=== PATIENT | female | born 1940 | race Caucasian/White ===

== ENCOUNTER → 2017-05-03 | Outpatient (CLI) | payer MEDICARE ==
--- NOTE | 2017-05-10 12:05 | CONS ---
DATE OF CONSULTATION: 05/03/2017 A 77-year-old lady had been evaluated in sleep center for possible obstructive sleep apnea hypopnea syndrome. HISTORY OF PRESENT ILLNESS/SLEEP WAKE EVALUATION: SLEEP SCHEDULE: The patient's usual sleep scheduled from 9:10 p.m. until 6 to 7 a.m. Average sleep is for about 7 hours. No TV in bedroom. FALLING ASLEEP: DURING SLEEP: She usually sleeps on the back position. She snores and has episodes of stopped breathing during the sleep. She wakes up from sleep 3 times with nocturia and dry mouth and positive history of gasping for air during the sleep. DURING THE DAY/WAKE STATE: She occasionally takes naps in the afternoon. [place] sleepiness scale is 8. PAST MEDICAL HISTORY: Positive for hyperlipidemia, left breast CA, seasonal allergy. PAST SURGICAL HISTORY: Lumpectomy from left breast in 2012, surgical treatment of broken leg in 2014. MEDICATIONS: Arimidex, Crestor, baby aspirin. REVIEW OF SYSTEMS: Awakenings from sleep, sometimes tiredness and sleepiness during the day. No fevers. No double vision. No recent chest pain. No shortness of breath. No abdominal pain. No bleeding episodes. No blood in urine. No seizure episodes. SOCIAL HISTORY: Negative for smoking or using alcohol. FAMILY HISTORY: Hypertension, hyperlipidemia, stroke, snoring, diabetes. DURING PHYSICAL EXAM: A 77-year-old lady without distress. VITAL SIGNS: BP 144/88, HR 85, RR 16, height 65.5, weight 159.8, BMI 26.2. Neck 14 inches in circumference. Temperature 98.0. HEENT: PERRLA, EOMI. Evaluation of oropharynx moderately low position of soft palate, extremely short distance between soft palate and back pharyngeal wall. Small nasal passages. NECK: Supple. No JVD. Thyroid is not palpable. LUNGS: Clear to percussion and auscultation. Good air exchange. No wheezing or rhonchi. HEART: S1, S2 regular. No murmurs, gallops or rubs. ABDOMEN: Soft and nontender. Bowel sounds are present. No organomegaly appreciated. EXTREMITIES: No clubbing or cyanosis. ICE SKATING TEACHER: Awake, alert and oriented x3. Cranial nerves 2 to 7 intact. There is no fasciculation or atrophy noted. No focal deficits observed. IMPRESSION: 1. Snoring, witnessed episodes of stopped breathing during the sleep. Awakenings with dry mouth and nocturia. Small oropharyngeal air space. Obstructive sleep apnea hypopnea syndrome. 2. History of left breast cancer, status post lumpectomy. 3. Hyperlipidemia. 4. History of broken leg. PLAN: 1. Polysomnography for evaluation of patient's breathing during sleep. 2. CPAP/BiPAP titration if sleep study confirms obstructive sleep apnea- hypopnea syndrome. 3. Preferable position during sleep on the side. 4. No driving if patient feels any sleepiness. Patient is aware of civil and criminal liability for unsafe driving. 5. I will see patient for follow-up visit to explain results of the testing and following plan. Thank you very much for referring this patient for consultation. Sincerely, Satish Read MD, PhD, FAASM Diplomat of [place] [employer] Sleep Medicine Board by [place] [employer] [place] [employer] Fly Winder of [facility] [place] [facility]
== END | disposition home or self-care (01) ==
LOC: SLEEP 14:28
PROVIDERS: ATTEND Internal Medicine
DX: G47.33 Obstructive sleep apnea (adult) (pediatric) (principal); E78.5 Hyperlipidemia, unspecified; Z85.3 Personal history of malignant neoplasm of breast; Z98.890 Other specified postprocedural states; Z79.811 Long term (current) use of aromatase inhibitors; Z79.82 Long term (current) use of aspirin
CPT/HCPCS: 99211

== ENCOUNTER → 2017-07-12 | Outpatient (CLI) | payer MEDICARE ==
--- NOTE | 2017-07-12 22:20 | PN ---
PROGRESS NOTE DATE OF SERVICE: 07/12/2017 77-year-old lady has been followed in the Sleep Center for treatment of obstructive sleep apnea-hypopnea syndrome. Recently the patient had diagnostic polysomnogram and CPAP titration and I discussed results of the sleep study with the patient in detail. She has severe sleep apnea with apnea-hypopnea index 42.9. She was started on treatment with CPAP and she brought her CPAP unit with her. She is able to use equipment without significant problem. I checked CPAP unit. CPAP pressure in automatic regimen, range between 5 and 10. The patient demonstrated 100% compliance with treatment. She is using equipment every night more than 4 hours every 7.2 hours. Most of the time, pressure is 9.8 cm of water. Leak is in normal range, 11 L/minute. Apnea-hypopnea index is only 1.8 for the last month reading which is in normal range. [place] Sleepiness Scale today is 5. IMPRESSION: 1. Severe obstructive sleep apnea-hypopnea syndrome. Apnea-hypopnea index 42.9 with oxygen desaturation of 77.4% on full control with CPAP. Patient demonstrated 100% compliance with treatment benefiting from treatment. 2. Hyperlipidemia. MEDICATIONS: 1. Aspirin. 2. Arimidex. History of left breast CA treated with lumpectomy treated with radiation. PLAN: 1. The patient will continue to use her CPAP equipment with the same pressure every night for the whole night. 2. Watching weight. 3. Sleep hygiene with time in bed for at least 8 hours. 4. No driving if feeling sleepiness. 5. Followup visit in 10 months. Thank you very much for allowing me to participate in management of your patient. Sincerely, Satish Read MD, PhD, FAASM Diplomat of [place] [employer]. Sleep Medicine Board by [place] [employer] [employer] Clinical Data Associate of [facility] [place] MMODL / IJN: [id number] /
== END ==
LOC: SLEEP 13:57
PROVIDERS: ATTEND Internal Medicine
DX: G47.33 Obstructive sleep apnea (adult) (pediatric) (principal); E78.5 Hyperlipidemia, unspecified; Z79.899 Other long term (current) drug therapy; Z79.82 Long term (current) use of aspirin

== ENCOUNTER → 2018-07-11 | Outpatient (CLI) | payer MEDICARE ==
--- NOTE | 2018-07-11 12:57 | SFUN ---
SLEEP CENTER FOLLOW UP NOTE DATE OF SERVICE: 07/11/2018 A 78-year-old lady who has been followed in sleep center for treatment of severe obstructive sleep apnea-hypopnea syndrome. Patient continued to use her CPAP equipment every night for the whole year. She had one episode when she feels some tightness in the chest. She believes that at that time she has some allergy reaction. I checked her CPAP unit. It is on the automatic regimen with a pressure range of 5 to 10. Usage is 100% of the time more than 4 hours, 28 out of 30 nights for more than 4 hours. Average usage is 6.4 hours. Leak only 2 L/minute. Reading of the pressure from the machine is 9.9 cm of water. Apnea-hypopnea index of 4.7 for the last month, 4.0 for the last 6 months. At that period of time, pressure is in the range of 9.7 cm of water slightly less. Patient increased her weight of around 6 pounds since titration. No significant excessive daytime sleepiness. [place] Sleepiness Scale is 3. MEDICATIONS: Aspirin, Arimidex. PHYSICAL EXAMINATION: During physical exam, patient in no distress. VITAL SIGNS: BP 151/87, HR 81, RR 15, height 66 inches, weight 165.2 pounds, body mass index 26.6, temperature 98.2, oxygen saturation at room air 98%. HEENT: PERRLA, EOMI. Oropharynx low position of soft palate. NECK: Supple, no JVD. Thyroid is not palpable. LUNGS: Clear to percussion and to auscultation. Good air exchange. No wheezing or rhonchi. HEART: S1, S2 regular. No murmurs, gallops, or rubs. ABDOMEN: Soft and nontender. Bowel sounds are present. No organomegaly appreciated. EXTREMITIES: No clubbing or cyanosis. PRINCIPAL CONSULTANT: Awake, alert, and oriented X3. Cranial nerves 2 to 7 intact. There is no fasciculation or atrophy. noted. No focal deficits observed. IMPRESSIONS: 1. Severe obstructive sleep apnea-hypopnea syndrome on control with CPAP. The patient demonstrated 100% compliance with treatment, benefitting from treatment. 2. Hyperlipidemia. 3. History of left breast cancer, treated by lumpectomy and radiation therapy. PLAN: 1. Patient will continue to use her equipment every night for the whole night. 2. Sleep hygiene with regular time in bed for at least 8 hours. 3. Prescription for all necessary CPAP supplies including mask, tube, filters. 4. No driving if feeling any sleepiness. Thank you very much for allowing me to participate in management of your patient. Sincerely, Satish Read MD, PhD, FAASM Diplomat of [place] [employer] [place] [employer] Edger Machine Operator of [facility] [place] MMODL / IJN: [id number] /
== END | disposition home or self-care (01) ==
LOC: SLEEP 11:12
PROVIDERS: ATTEND Internal Medicine
DX: G47.33 Obstructive sleep apnea (adult) (pediatric) (principal); Z99.89 Dependence on other enabling machines and devices; Z85.3 Personal history of malignant neoplasm of breast; Z92.3 Personal history of irradiation; Z90.12 Acquired absence of left breast and nipple; Z79.811 Long term (current) use of aromatase inhibitors; Z79.82 Long term (current) use of aspirin; Z79.899 Other long term (current) drug therapy

== ENCOUNTER → 2019-07-10 | Outpatient (CLI) | payer MEDICARE ==
--- NOTE | 2019-07-10 17:33 | PN ---
PROGRESS NOTE DATE OF SERVICE: 07/10/2019 This 79-year-old lady has been followed in Sleep Center for treatment of obstructive sleep apnea-hypopnea syndrome. The patient successfully continues to use her CPAP equipment every night for the whole night. No significant problems with her mask. I checked her CPAP unit. Range of pressure is from 5 to 10, average pressure 9.8 cm of water. Usage is 30/30 nights for more than 4 hours, with average usage 6.8 hours per night. Apnea-hypopnea index is only 2.6, which is normal. Leak is only 7 L/minute, which is normal. [place] Sleepiness Scale today is 3, which is perfect. MEDICATIONS: 1. Arimidex was stopped. 2. Aspirin. 3. Lipitor. PHYSICAL EXAMINATION: GENERAL: A pleasant patient in no distress. VITAL SIGNS: BP 163/91, HR 80, RR 16, height 66 inches, weight 162 pounds. Body mass index 26.9. Temperature 97.7, oxygen saturation at room air 99%. HEENT: PERRLA, EOMI. Evaluation of oropharynx showed tongue protrudes midline. Low position of soft palate. Mallampati III. NECK: Supple. No JVD. Thyroid is not palpable. LUNGS: Clear to percussion and to auscultation. Good air exchange. No wheezing or rhonchi. HEART: S1, S2 regular. No murmurs, gallops or rubs. ABDOMEN: Soft and nontender. Bowel sounds are present. No organomegaly. EXTREMITIES: No clubbing or cyanosis. ASSISTANT STORE DIRECTOR: Awake, alert, and oriented X3. Cranial nerves 2 to 7 intact. There is no fasciculation or atrophy. noted. No focal deficits observed. IMPRESSION: 1. Severe obstructive sleep apnea-hypopnea syndrome, under control with CPAP. The patient demonstrated great compliance with treatment, benefitting from treatment. 2. Hyperlipidemia. 3. History of left breast carcinoma, treated by lumpectomy, radiation therapy. PLAN: 1. Patient will continue to use CPAP equipment every night for the whole night. 2. I will maintain all necessary prescriptions for CPAP supplies, including small AirFit P10 nasal pillow mask, tube, filters. 3. Precautions related to driving. No driving if feeling any sleepiness. Thank you very much for allowing me to participate in the management of your patient. Sincerely, Satish Read MD, PhD, FAASM Diplomat of [place] [employer] [place] [employer] Medicine Multi Needle Machine Operator of [facility] [place] MMODL / LETAN: [id number] /
== END | disposition home or self-care (01) ==
LOC: SLEEP 15:17
PROVIDERS: ATTEND Internal Medicine
DX: G47.33 Obstructive sleep apnea (adult) (pediatric) (principal); E78.5 Hyperlipidemia, unspecified; Z85.3 Personal history of malignant neoplasm of breast; Z92.3 Personal history of irradiation; Z98.890 Other specified postprocedural states; Z99.89 Dependence on other enabling machines and devices; Z79.82 Long term (current) use of aspirin; Z79.899 Other long term (current) drug therapy

== ENCOUNTER 2019-08-10 12:24 | Emergency (ER) | payer MEDICARE ==
[2019-08-10 12:28] VITALS: RESP 16
[2019-08-10 12:53] VITALS: TEMP 97.6
--- NOTE | 2019-08-10 12:55 | ED ---
Neuro HPI - General Chief Complaint: Neuro Symptoms/Deficit Stated Complaint: rt sided arm/face numbness Time Seen by Provider: 08/10/19 12:30 Source: patient Mode of arrival: ambulatory Limitations: no limitations - History of Present Illness Is the patient presenting with stroke symptoms?: Yes Last Known Well Date: 08/09/19 Last Known Well Time: 18:00 Initial Comments: The patient is a 79-year-old female with past history of hyperlipidemia who presents to the emergency department with complaint of right arm and right thigh tingling. She reports that the symptoms started sometime last night. She does have a history of degenerative disc disease and herniated disks. She was that this may be causing her symptoms. She denies any provocation or palliation of the symptoms with movement. She did not take any medications at home for her symptoms. She denies any upper or lower extremity weakness. There is no report of any slurred speech, confusion or ataxia. Denies any headaches or visual changes. Denies chest pain or shortness of breath. No ripping or tearing se nsation to her back. Denies nausea, vomiting. No history of cardiac disease. There are no other alleviating, precipitating or modifying factors - Related Data Home Medications: Home Medications Medication Instructions Recorded Confirmed Acetaminophen [Tylenol Extra 1,000 mg PO BID PRN 08/10/19 08/10/19 Strength] Calcium Carbonate [Calcium] 600 mg PO DAILY 08/10/19 08/10/19 L.acidoph,Paracasei, B.lactis 1 cap PO DAILY 08/10/19 08/10/19 [Probiotic] Multivitamins, Thera [Multivitamin 1 tab PO DAILY 08/10/19 08/10/19 (formulary)] Allergies/Adverse Reactions: Allergies Allergy/AdvReac Type Severity Reaction Status Date / Time atorvastatin [From Lipitor] Allergy Rash/Hives Verified 08/10/19 12:54 rosuvastatin [From Crestor] AdvReac Leg Cramps Verified 08/10/19 12:54 Review of Systems ROS Statement: Those systems with pertinent positive or pertinent negative responses have been documented in the HPI. ROS Other: All systems not noted in ROS Statement are negative. General Exam Limitations: no limitations General appearance: alert, in no apparent distress Head exam: Present: atraumatic, normocephalic, normal inspection Eye exam: Present: normal appearance, PERRL, EOMI. Absent: scleral icterus, conjunctival injection, periorbital swelling ENT exam: Present: normal exam, mucous membranes moist Neck exam: Present: normal inspection. Absent: tenderness, meningismus, lymphadenopathy Respiratory exam: Present: normal lung sounds bilaterally. Absent: respiratory distress, wheezes, rales, rhonchi, stridor Cardiovascular Exam: Present: regular rate, normal rhythm, normal heart sounds. Absent: systolic murmur, diastolic murmur, rubs, gallop, clicks GI/Abdominal exam: Present: soft, normal bowel sounds. Absent: distended, tenderness, guarding, rebound, rigid Extremities exam: Present: normal inspection, full ROM, normal capillary refill. Absent: tenderness, pedal edema, joint swelling, calf tenderness Back exam: Present: normal inspection Neurological exam: Present: alert, oriented X3, CN II-XII intact, normal gait, reflexes normal, other (sensation intact in all dermotomes. ) Psychiatric exam: Present: normal affect, normal mood Skin exam: Present: warm, dry, intact, normal color. Absent: rash Stroke MDM - Lab Data Result diagrams: 08/10/19 12:45 08/10/19 12:45 Lab Results 08/10/19 08/10/19 08/10/19 Range/Units 12:45 12:45 12:45 WBC 4.7 (3.8-10.6) k/uL RBC 4.71 (3.80-5.40) m/uL Hgb 13.1 (11.4-16.0) gm/dL Hct 41.2 (34.0-46.0) % MCV 87.4 (80.0-100.0) fL MCH 27.7 (25.0-35.0) pg MCHC 31.7 (31.0-37.0) g/dL RDW 14.6 (11.5-15.5) % Plt Count 444 (150-450) k/uL Neutrophils % 55 % Lymphocytes % 33 % Monocytes % 6 % Eosinophils % 1 % Basophils % 3 % Neutrophils # 2.6 (1.3-7.7) k/uL Lymphocytes # 1.6 (1.0-4.8) k/uL Monocytes # 0.3 (0-1.0) k/uL Eosinophils # 0.0 (0-0.7) k/uL Basophils # 0.1 (0-0.2) k/uL PT 10.4 (9.0-12.0) sec INR 1.0 (<1.2) APTT 24.6 (22.0-30.0) sec Sodium 135 L (137-145) mmol/L Potassium 4.5 (3.5-5.1) mmol/L Chloride 95 L (98-107) mmol/L Carbon Dioxide 28 (22-30) mmol/L Anion Gap 12 mmol/L BUN 10 (7-17) mg/dL Creatinine 1.00 (0.52-1.04) mg/dL Est GFR (CKD-EPI)AfAm 63 (>60 ml/min/1.73 sqM) Est GFR (CKD-EPI)NonAf 54 (>60 ml/min/1.73 sqM) Glucose 118 H (74-99) mg/dL Calcium 10.2 (8.4-10.2) mg/dL Total Bilirubin 0.9 (0.2-1.3) mg/dL AST 28 (14-36) U/L ALT 31 (9-52) U/L Alkaline Phosphatase 29 L (38-126) U/L Troponin I (0.000-0.034) ng/mL Total Protein 8.2 (6.3-8.2) g/dL Albumin 5.0 (3.5-5.0) g/dL 08/10/19 Range/Units 12:45 WBC (3.8-10.6) k/uL RBC (3.80-5.40) m/uL Hgb (11.4-16.0) gm/dL Hct (34.0-46.0) % MCV (80.0-100.0) fL MCH (25.0-35.0) pg MCHC (31.0-37.0) g/dL RDW (11.5-15.5) % Plt Count (150-450) k/uL Neutrophils % % Lymphocytes % % Monocytes % % Eosinophils % % Basophils % % Neutrophils # (1.3-7.7) k/uL Lymphocytes # (1.0-4.8) k/uL Monocytes # (0-1.0) k/uL Eosinophils # (0-0.7) k/uL Basophils # (0-0.2) k/uL PT (9.0-12.0) sec INR (<1.2) APTT (22.0-30.0) sec Sodium (137-145) mmol/L Potassium (3.5-5.1) mmol/L Chloride (98-107) mmol/L Carbon Dioxide (22-30) mmol/L Anion Gap mmol/L BUN (7-17) mg/dL Creatinine (0.52-1.04) mg/dL Est GFR (CKD-EPI)AfAm (>60 ml/min/1.73 sqM) Est GFR (CKD-EPI)NonAf (>60 ml/min/1.73 sqM) Glucose (74-99) mg/dL Calcium (8.4-10.2) mg/dL Total Bilirubin (0.2-1.3) mg/dL AST (14-36) U/L ALT (9-52) U/L Alkaline Phosphatase (38-126) U/L Troponin I <0.012 (0.000-0.034) ng/mL Total Protein (6.3-8.2) g/dL Albumin (3.5-5.0) g/dL - Medical Decision Making Upon arrival the patient is placed into room 10. A thorough history and physical exam was performed. The patient does report subjective sensation changes in her right upper extremity at this time. No appreciable weakness. The patient does have intact sensation upon testing. NIH stroke scaling is performed and demonstrates a score of 0. I did recommend laboratory studies, and EKG and a CT of the patient's brain and cervical spine as she does report a history of cervical neck pain. Laboratory studies demonstrate a sodium of 135, chloride 95. Glucose 118. Troponin is negative. The patient is sent over for chest x-ray which demonstrates no active molding technician process. CT of the b rain demonstrates mild atrophy appropriate for age. No acute intracranial abnormality. Minor facet arthropathy with degenerative disc space narrowing at C5-C6, C6 to 7 with spur formation. I did discuss these results with the patient. I did perform a neurologic exam which demonstrates no new deficits. Patient reports that the numbness in her right upper extremity has improved somewhat. I did discuss diagnosis, differential and treatment options. I did offer admission to the hospital for MRI and neurologic consultation however the patient refused. I do believe that the patient is suffering from paresthesias in her right upper extremity however did recommend a full workup to include ca rotid Dopplers and an echo. The patient should call her primary care physician immediately and the morning to have the scheduled. The patient has any new or worsening symptoms she needs to return to the emergency department. Return parameters were discussed. The patient was discharged in stable condition 08/10/19 13:19 EKG demonstrates normal sinus rhythm with a ventricular rate of 80. VT interval 138. QRS 82. QTC 442. No acute ST segment elevations or depressions concerning for ischemic changes Past Medical History Past Medical History: Hyperlipidemia History of Any Multi-Drug Resistant Organisms: None Reported Past Surgical History: Orthopedic Surgery Additional Past Surgical History / Comment(s): Breast surgery Past Psychological History: No Psychological Hx Reported Smoking Status: Never smoker Past Alcohol Use History: None Reported Past Drug Use History: None Reported Course Vital Signs 08/10/19 08/10/19 08/10/19 12:25 12:45 13:30 Temperature 97.4 F L 97.6 F Pulse Rate 101 H 91 Respiratory 16 18 Rate Blood Pressure 184/94 173/163 O2 Sat by Pulse 100 98 Oximetry 08/10/19 08/10/19 08/10/19 14:00 14:30 15:00 Temperature Pulse Rate 86 76 74 Respiratory 16 23 13 Rate Blood Pressure 168/89 163/93 163/93 O2 Sat by Pulse 99 99 99 Oximetry 08/10/19 08/10/19 15:30 15:45 Temperature Pulse Rate 69 80 Respiratory 22 16 Rate Blood Pressure 160/90 160/84 O2 Sat by Pulse 99 98 Oximetry Disposition Clinical Impression: Paresthesias in right hand Disposition: HOME SELF-CARE Condition: Stable Instructions (If sedation given, give patient instructions): Paresthesia (ED) Additional Instructions: Please follow-up with Dr. Obregon. Call of the office tomorrow. I do recommend that you have a full workup to include carotid Dopplers, echo of your heart, possible Holter monitoring and even an MRI. Return to the emergency room if you have any new or worsening symptoms. Is patient prescribed a controlled substance at d/c from ED?: No Referrals: Sandy Obregon MD [Primary Care Provider] - 1-2 days Time of Disposition: 15:26
[2019-08-10 13:15] LABS: Basophils # (A) 0.1 k/uL (0-0.2); Basophils % (A) 3 %; Eosinophils % (A) 1 %; HCT 41.2 % (34.0-46.0); HGB 13.1 gm/dL (11.4-16.0); Lymphocytes # (A) 1.6 k/uL (1.0-4.8); Lymphocytes % (A) 33 %; MCH 27.7 pg (25.0-35.0); MCHC 31.7 g/dL (31.0-37.0); MCV 87.4 fL (80.0-100.0); Mean Platelet Volume 7.3; Monocytes # (A) 0.3 k/uL (0-1.0); Monocytes % (A) 6 %; Neutrophils # (A) 2.6 k/uL (1.3-7.7); Neutrophils % (A) 55 %; Platelet Count 444 k/uL (150-450); RBC 4.71 m/uL (3.80-5.40); RDW 14.6 % (11.5-15.5); WBC 4.7 k/uL (3.8-10.6)
[2019-08-10 13:28] LABS: Calcium 10.2 mg/dL (8.4-10.2); Potassium 4.5 mmol/L (3.5-5.1); Total Bilirubin 0.9 mg/dL (0.2-1.3); Total Protein 8.2 g/dL (6.3-8.2)
[2019-08-10 13:32] LABS: Prothrombin Time 10.4 sec (9.0-12.0)
[2019-08-10 13:33] LABS: Partial Thromboplastin Time 24.6 sec (22.0-30.0)
--- NOTE | 2019-08-10 14:16 | CT ---
EXAMINATION TYPE: CT brain ginna patrick DATE OF EXAM: 08/10/2019 COMPARISON: None HISTORY: Right sided arm/face numbness CT DLP: 1261.2 mGycm Automated exposure control for dose reduction was used. TECHNIQUE: CT scan of the head and cervical spine are performed without contrast. FINDINGS: There is mild cerebral cortical atrophy. There is no mass effect nor midline shift. There is no sign of intracranial hemorrhage. The calvarium is intact. There is no evidence of cerebral mook ma. Cervical vertebra have normal alignment. Posterior elements are intact. There is minor facet arthropa thy. There is some mild degenerative disc space narrowing at C5-6 C6-7 with spur formation. There is no evidence of a fracture. The skull base is intact. Temporal bones appear intact. IMPRESSION: Mild atrophy appropriate for age. No acute intracranial abnormality. Minor spondylotic changes in the lower cervical spine. No fracture.
--- NOTE | 2019-08-10 14:46 | XR ---
EXAMINATION TYPE: XR chest 2V DATE OF EXAM: 08/10/2019 COMPARISON: 04/08/2013 HISTORY: Altered mental status TECHNIQUE: Frontal and lateral views of the chest are obtained. FINDINGS: Heart is normal. Lungs are clear of infiltrate. Thoracic aorta is atheromatous. There are chest leads. Bony thorax is intact. IMPRESSION: No active cardiopulmonary disease. No change.
[2019-08-10 15:46] VITALS: BP 160/84; PULSE 80
== END 2019-08-10 15:52 | disposition home or self-care (01) ==
LOC: EC 12:24
DX: R20.2 Paresthesia of skin (principal); R20.0 Anesthesia of skin; M46.92 Unspecified inflammatory spondylopathy, cervical region; M48.02 Spinal stenosis, cervical region; Z88.8 Allergy status to other drugs, medicaments and biological substances
CPT/HCPCS: 36415; 70450; 71046; 72125; 80053; 84484; 85025; 85610; 85730; 93005; 99284

== ENCOUNTER → 2021-05-02 | Outpatient (CLI) | payer MEDICARE ==
--- NOTE | 2021-05-02 12:53 | CT ---
EXAMINATION TYPE: CT sinus wo con DATE OF EXAM: 05/02/2021 COMPARISON: None HISTORY: 81-year-old female J32.9, Chronic Sinusitis CT DLP: 606 mGycm Automated exposure control for dose reduction was used. TECHNIQUE: Noncontrast axial views of the paranasal sinuses were obtained. Coronal reconstructions pe rformed. FINDINGS: PARANASAL SINUSES: Mild mucosal thickening posterior left ethmoid air cells. Hypoplastic left frontal sinus. Otherwise, frontal, sphenoid, maxillary, ethmoid air cells well pneumatized. There is no air-fluid level. Reactive hank- osteogenesis is not seen. There is no destruction of the osseous wesley of the paranasal sinuses. THE NASAL CAVITY: The osteomeatal complexes are patent. No significant nasal septal deviation. Moderate atherosclerotic calcifications of the carotid siphons . Some mild hyperostosis frontalis interna is normal variation. Mastoid air cells and middle ear cavi ties are well pneumatized. Reformatted images confirm above findings. IMPRESSION: Mild mucosal thickening posterior left ethmoid air cells. Hypoplastic left frontal sinus. Otherwise, no significant paranasal sinus disease.
== END | disposition home or self-care (01) ==
LOC: RADCTMAIN 08:28
PROVIDERS: ATTEND Otolaryngology
DX: J32.9 Chronic sinusitis, unspecified (principal)
CPT/HCPCS: 70486

== ENCOUNTER → 2021-07-04 | Outpatient (CLI) | payer MEDICARE ==
[2021-07-04 13:14] LABS: Albumin 4.8 g/dL (3.5-5.0); Calcium 9.8 mg/dL (8.4-10.2); Potassium 4.4 mmol/L (3.5-5.1); Total Bilirubin 0.7 mg/dL (0.2-1.3); Total Protein 7.3 g/dL (6.3-8.2)
--- NOTE | 2021-07-04 14:24 | CT ---
EXAMINATION TYPE: CT angio head neck DATE OF EXAM: 07/04/2021 HISTORY: NICHOLS COMPARISON: None. CT DLP: 1299.9 mGycm. Automated Exposure Control for Dose Reduction was Utilized. TECHNIQUE: CTA scan of the head and neck are performed with IV Contrast, patient injected with 65 mL of Isovue 370, axial images are obtained, coronal and sagittal reformatted images are reviewed. Thre e-D reconstructed images are created on an independent workstation and reviewed. FINDINGS: Carotid/Vascular Structures: Mild peripheral plaque in the aortic arch. Normal three-vessel origin fr om the aortic arch. Right common carotid artery showed normal origin from the right brachiocephalic a rtery. No significant focal plaque or stenosis in the common carotid arteries bilaterally. Mild perip heral calcified plaque at bilateral carotid bulb level without significant stenosis. Patent external carotid arteries bilaterally without significant stenosis. Mild to moderate peripheral calcified plaq ue distal internal carotid arteries bilaterally. No significant focal stenosis. Patent anterior comm unicating artery. No significant focal stenosis or aneurysm in the anterior circulation. Codominant patent bilateral vertebral arteries. No significant focal stenosis or aneurysm in the post erior circulation. Hypoplastic bilateral posterior communicating arteries. Other: Noncontrast CT shows mild diffuse age-related cerebral atrophy and mild to moderate chronic sm all vessel ischemic change. Hyperostosis frontalis. Greater than 1 cm lower pole left thyroid nodule coronal image 32 series 20 is suspected, advise none mergent thyroid ultrasound follow-up to further evaluate. Mild emphysematous change in the upper lung s. IMPRESSION: No significant stenosis in the common or internal carotid arteries bilaterally. NASCET criteria was used in interpretation of this exam?
== END | disposition home or self-care (01) ==
LOC: RADCTMAIN 12:18
PROVIDERS: ATTEND Psychiatry & Neurology Neurology
DX: I65.23 Occlusion and stenosis of bilateral carotid arteries (principal); I67.82 Cerebral ischemia; M85.2 Hyperostosis of skull
CPT/HCPCS: 80053; 70496; 70498; 36415; Q9967

== ENCOUNTER → 2021-08-22 | Outpatient (CLI) | payer MEDICARE ==
--- NOTE | 2021-08-22 16:02 | US ---
EXAMINATION TYPE: US thyroid st tissue head/neck DATE OF EXAM: 08/22/2021 COMPARISON: CT CLINICAL HISTORY: E04.1 Thyroid nodule. Possible thyroid nodule seen on CT GLAND SIZE: Right Lobe: 3.0 x 1.5 x 1.3 cm Overall Parenchyma: homogenous Left Lobe: 3.5 x 1.6 x 1.4 cm Overall Parenchyma: homogeneous Isthmus Thickness: 0.2 cm NODULES RIGHT: # of nodules measured on right: 0 LEFT: # of nodules measured on left: 1 1. 1.4 X 1.0 x 0.8 cm, mid lateral, solid or almost completely solid, isoechoic nodule, which is wi karlos than tall, with ill-defined margins, without echogenic foci. Prior size: Visualized on CT ISTHMUS: # of nodules measured in the isthmus: 0 Bilateral neck scanned, no evidence of lymphadenopathy. Possible single nodule left lobe as visualize d on prior CT, very difficult to visualize borders. IMPRESSION: Possible left thyroid nodule. 2017 ACR TI-RADS LEVEL: TR-RADS 3 - Mildly Suspicious: Follow if > 1.5 cm, FNA if > 2.5 cm *Highest TI-RADS level nodule reported
== END | disposition home or self-care (01) ==
LOC: RADUSWWP 12:54
PROVIDERS: ATTEND Family Medicine
DX: E04.2 Nontoxic multinodular goiter (principal)
CPT/HCPCS: 76536

== ENCOUNTER → 2022-07-12 | Outpatient (CLI) | payer MEDICARE ==
--- NOTE | 2022-07-14 07:17 | US ---
EXAMINATION TYPE: US thyroid st tissue head/neck DATE OF EXAM: 07/12/2022 COMPARISON: US 2020 CLINICAL HISTORY: E04.1 SINGLE THYROID NODULE. Nodule GLAND SIZE: Right Lobe: 4.1 x 1.6 x 1.7 cm Overall Parenchyma: Slightly heterogeneous. Left Lobe: 4.3 x 1.3 x 1.9 cm Overall Parenchyma: Slightly heterogeneous. Isthmus Thickness: 0.2 cm NODULES RIGHT: # of nodules measured on right: 0 LEFT: # of nodules measured on left: 1 1. 0.5 X 0.4 x 0.3 cm, mid lateral, mixed cystic and solid nodule, which is wider than tall, with i ll-defined margins, with echogenic foci. Prior size: Unable to definitely correlate, cannot see prior imaging. ISTHMUS: # of nodules measured in the isthmus: 0 Bilateral neck scanned, no evidence of lymphadenopathy. IMPRESSION: Nonspecific thyroid nodularity and heterogeneity.
== END | disposition home or self-care (01) ==
LOC: RADUSWWP 15:31
PROVIDERS: ATTEND Family Medicine
DX: E04.1 Nontoxic single thyroid nodule (principal)
CPT/HCPCS: 76536

== ENCOUNTER 2023-05-04 12:26 | Emergency (ER) | payer MEDICARE ==
[2023-05-04] MEDS ORDERED: KETOROLAC 15 MG/ML 1 ML VIAL IM STA (13:15)
[2023-05-04] MEDS ORDERED: dexAMETHasone 2 MG TAB PO STA (13:15)
--- NOTE | 2023-05-04 13:43 | XR ---
EXAMINATION TYPE: XR chest 2V DATE OF EXAM: 05/04/2023 COMPARISON: 08/10/2019 INDICATION: Cough, pain TECHNIQUE: Frontal and lateral views of the chest are obtained. FINDINGS: The heart size is normal. The pulmonary vasculature is normal. The lungs are clear. There appears to be a summation density at the right base with the anterior six th rib with a posterior rib. IMPRESSION: 1. No acute pulmonary process.
--- NOTE | 2023-05-04 13:53 | ED ---
URI HPI - General Chief Complaint: Upper Respiratory Infection Stated Complaint: Weakness Time Seen by Provider: 05/04/23 12:35 Source: patient Mode of arrival: ambulatory Limitations: no limitations - History of Present Illness Initial Comments: 83-year-old female presents to the emergency department reporting cough, congestion and shortness of breath since the . Admits that she slightly started feeling better this past weekend however on Sunday the symptoms got worse again. She has a very productive cough. is sick with similar symptoms. She took a Covid test this morning and it was positive. She denies fevers. Does admit to body aches. No underlying lung conditions. No cardiac history. No nausea, vomiting or diarrhea. Continues to eat and drink without difficulty. No diarrhea. No other alleviating, precipitating or modifying factors - Related Data Home Medications Medication Instructions Recorded Confirmed Acetaminophen [Tylenol Extra 1,000 mg PO BID PRN 08/10/19 08/10/19 Strength] Calcium Carbonate [Calcium] 600 mg PO DAILY 08/10/19 08/10/19 L.acidoph,Paracasei, B.lactis 1 cap PO DAILY 08/10/19 08/10/19 [Probiotic] Multivitamins, Thera [Multivitamin 1 tab PO DAILY 08/10/19 08/10/19 (formulary)] Previous Rx's Medication Instructions Recorded Albuterol Inhaler [Ventolin Hfa 2 puff INHALATION QID #8 gm 05/04/23 Inhaler] Codeine Phosphate/Guaifenesin 5 ml PO Q6H 3 Days #60 ml 05/04/23 [Codeine Phosphate/Guaifenesin 10-100 mg/5 ml] dexAMETHasone [Decadron] 6 mg PO DAILY #5 tablet 05/04/23 Allergies Allergy/AdvReac Type Severity Reaction Status Date / Time amlodipine Allergy Unknown Verified 05/04/23 12:34 atorvastatin [From Lipitor] Allergy Rash/Hives Verified 05/04/23 12:33 rosuvastatin [From Crestor] AdvReac Leg Cramps Verified 05/04/23 12:33 Review of Systems ROS Statement: Those systems with pertinent positive or pertinent negative responses have been documented in the HPI. ROS Other: All systems not noted in ROS Statement are negative. Past Medical History Past Medical History: Hyperlipidemia History of Any Multi-Drug Resistant Organisms: None Reported Past Surgical History: Orthopedic Surgery Additional Past Surgical History / Comment(s): Breast surgery , herniated disc Past Psychological History: No Psychological Hx Reported Smoking Status: Never smoker Past Alcohol Use History: None Reported Past Drug Use History: None Reported General Exam Limitations: no limitations General appearance: alert, in no apparent distress Head exam: Present: atraumatic, normocephalic, normal inspection Eye exam: Present: normal appearance, PERRL, EOMI. Absent: scleral icterus, conjunctival injection, periorbital swelling ENT exam: Present: mucous membranes moist, other (Nasal congestion) Neck exam: Present: normal inspection. Absent: tenderness, meningismus, lymphadenopathy Respiratory exam: Present: normal lung sounds bilaterally. Absent: respiratory distress, wheezes, rales, rhonchi, stridor Cardiovascular Exam: Present: regular rate, normal rhythm, normal heart sounds. Absent: systolic murmur, diastolic murmur, rubs, gallop, clicks GI/Abdominal exam: Present: soft, normal bowel sounds. Absent: distended, tenderness, guarding, rebound, rigid Extremities exam: Present: normal inspection, full ROM, normal capillary refill. Absent: tenderness, pedal edema, joint swelling, calf tenderness Back exam: Present: normal inspection Neurological exam: Present: alert, oriented X3, CN II-XII intact Psychiatric exam: Present: normal affect, normal mood Skin exam: Present: warm, dry, intact, normal color. Absent: rash Course Vital Signs 05/04/23 12:34 Temperature 99 F Pulse Rate 103 H Respiratory 18 Rate Blood Pressure 162/93 O2 Sat by Pulse 98 Oximetry Medical Decision Making - Medical Decision Making Was pt. sent in by a medical professional or institution (, PA, REGULATION SUPERVISOR, urgent care, hospital, or jail...) When possible be specific @ -No Did you speak to anyone other than the patient for history (EMS, parent, family, police, friend...)? What history was obtained from this source @ -No Did you review nursing and triage notes (agree or disagree)? Why? @ -I reviewed and agree with nursing and triage notes Were old charts reviewed (outside hosp., previous admission, EMS record, old EKG, old radiological studies, urgent care reports/EKG's, jail records)? Report findings @ -No old charts were reviewed Differential Diagnosis (chest pain, altered mental status, abdominal pain women, abdominal pain men, vaginal bleeding, weakness, fever, dyspnea, syncope, headache, dizziness, GI bleed, back pain, seizure, CVA, palpatations, mental health, musculoskeletal)? @ -Covid, influenza, pneumonia EKG interpreted by me (3pts min.). @ -Not completed X-rays interpreted by me (1pt min.). @ -Yes and demonstrates no acute process. No pneumonia CT interpreted by me (1pt min.). @ -None done U/S interpreted by me (1pt. min.). @ -None done What testing was considered but not performed or refused? (CT, X-rays, U/S, labs)? Why? @ -None What meds were considered but not given or refused? Why? @ -None Did you discuss the management of the patient with other professionals (professionals i.e. , PA, REGULATION SUPERVISOR, lab, RT, psych nurse, manager social media, shell freezing machine operator, teacher, patient safety officer, shelter case manager)? Give summary @ -No Was smoking cessation discussed for >3mins.? @ -No Was critical care preformed (if so, how long)? @ -No Were there social determinants of health that impacted care today? How? (Homelessness, low income, unemployed, alcoholism, drug addiction, transportation, low edu. Level, literacy, decrease access to med. care, detention, rehab)? @ -No Was there de-escalation of care discussed even if they declined (Discuss DNR or withdrawal of care, Hospice)? DNR status @ -No What co-morbidities impacted this encounter? (DM, HTN, Smoking, COPD, CAD, Cancer, CVA, ARF, Chemo, Hep., AIDS, mental health diagnosis, sleep apnea, morbid obesity)? @ -None Was patient admitted / discharged? Hospital course, mention meds given and route, prescriptions, significant lab abnormalities, going to OR and other pertinent info. @ -Arrival patient is placed in room 29. A thorough history and physical exam was performed. Patient is given a dose of Toradol for body aches. X-rays performed which demonstrates no acute process. Patient is saturating 90% on room air without any increased work for breathing. She is eating and drinking. Recommended starting steroids for her symptoms as well as an albuterol inhaler and codeine cough syrup. Patient is outside the window for Paxlovid treatment. She can continue taking Tylenol for fevers. Follow up with her primary care doctor in 2-4 days and return for any new or worsening symptoms. Her patient was agreeable with this plan and she was discharged in stable condition Undiagnosed new problem with uncertain prognosis? @ -No Drug Therapy requiring intensive monitoring for toxicity (Heparin, Nitro, Insulin, Cardizem)? @ -No Were any procedures done? @ -No Diagnosis/symptom? @ -Acute cough, acute Covid infection Acute, or Chronic, or Acute on Chronic? @ -Acute Uncomplicated (without systemic symptoms) or Complicated (systemic symptoms)? @ -Complicated Side effects of treatment? @ -No Exacerbation, Progression, or Severe Exacerbation? @ -No Poses a threat to life or bodily function? How? (Chest pain, [place], [place], pneumonia, PE, COPD, DKA, ARF, appy, cholecystitis, CVA, Diverticulitis, Homicidal, Suici destiny, threat to staff... and all critical care pts) @ -No Disposition Clinical Impression: COVID-19, Cough Disposition: HOME SELF-CARE Condition: Stable Instructions (If sedation given, give patient instructions): COVID-19 (Coronavirus Disease 2019) (ED) Additional Instructions: Start taking the steroids tomorrow. Use the inhaler every 4 hours. Take the cough syrup when you are not driving. Return to the emergency room for any new or worsening symptoms Prescriptions: Codeine Phosphate/Guaifenesin [Codeine Phosphate/Guaifenesin 10-100 mg/5 ml] 5 ml PO Q6H 3 Days #60 ml dexAMETHasone [Decadron] 6 mg PO DAILY #5 tablet Albuterol Inhaler [Ventolin Hfa Inhaler] 2 puff INHALATION QID #8 gm Is patient prescribed a controlled substance at d/c from ED?: Yes When asked, does pt state using other controlled substances?: No If prescribed controlled substance>3 days was MAPS reviewed?: Prescribed <3 Days If opioid is for acute pain is fill amount 7 days or less?: Yes Referrals: Sandy Obregon MD [Primary Care Provider] - 1-2 days Time of Disposition: 14:19
[2023-05-04 15:01] VITALS: BP 169/93; PULSE 79; RESP 20; TEMP 99.1
== END 2023-05-04 15:01 | disposition home or self-care (01) ==
LOC: EC 12:26
DX: U07.1 COVID-19 (principal); Z88.8 Allergy status to other drugs, medicaments and biological substances
CPT/HCPCS: 71046; 99285; 96372; J8540; J1885